=== PATIENT | male | born 1975 | race Caucasian/White ===

== ENCOUNTER 2019-06-30 11:11 | Inpatient (IN) | payer OTHER ==
[~2019-06-30] VITALS: Ht 182.9 cm; Wt 117.9 kg
[~2019-06-30 11:11] MED LIST: CELEXA; CEPH500 PO; DOCU100 PO; KLONOPIN; Keflex500 MG PO; OXYCODONE; Percocet 10-321 EACH PO
--- NOTE | 2019-06-30 17:59 | NUR ---
PT GAVE CONSENT FOR THIS DROP SHIPMENT CLERK TO HELP CARE FOR HIM TOMORROW 07/01/19
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
--- NOTE | 2019-07-01 07:36 | NUR ---
PT TO DAY SURGERY VIA [facility] AT [id number].
--- NOTE | 2019-07-01 07:47 | NUR ---
INTO SDS ADMISSION TO UNIT STARTED. VSS ANNESTHESIOLOGIST AT BEDSIDE. AT BEDSIDE.
--- NOTE | 2019-07-01 18:07 | NUR ---
SHIFT SUMMARY PT POD 0 LAP ADRIANO. LAP SITES X'S 4 C/D/I. DENIES N/V, TOLERATING REGULAR DIET. INDEPENDENTLY AMBULATING IN ROOM, WHEELCHAIR OUTSIDE TO SMOKE. MEDICATED FOR PAIN PER EMAR. PLAN IS TO DC HOME TOMORROW.
--- NOTE | 2019-07-02 04:59 | NUR ---
SHIFT SUMMARY: PT POD #1 FOR LAP ADRIANO. LAP SITES CDI. PT GELY REG DIET. AMBULATING HALLWAY INDEPENDENTLY. REPORTS PASSING FLATUS. DENIES N/V AND PAIN T/O SHIFT. PT DENIES NEED FOR PAIN MEDICATION. VOIDING WELL. SALINE LOCKED.
[2019-07-02 06:55] LABS: BASOPHILS ABSOLUTE AUTO 0.01 K/mm3 (0.00-0.23); BASOPHILS PERCENT AUTO 0 % (0-2); EOSINOPHILS PERCENT AUTO 0 % (0-6); Hemoglobin 13.1 g/dL (13.5-17.5); IMMATURE GRAN ABSOLUTE AUTO 0.05 K/mm3 (0.00-0.10); IMMATURE GRAN PERCENT AUTO 0 % (0-1); LYMPHOCYTES ABSOLUTE AUTO 0.94 K/mm3 (0.84-5.20); LYMPHOCYTES PERCENT AUTO 8 % (21-46); MONOCYTES ABSOLUTE AUTO 0.61 K/mm3 (0.16-1.47); MONOCYTES PERCENT AUTO 5 % (4-13); Mean Corpuscular HGB 25.3 pg (26.0-34.0); Mean Corpuscular HGB Conc 31.2 g/dL (31.5-36.5); Mean Platelet Volume 9.6 fL (9.1-12.4); NEUTROPHILS PERCENT AUTO 86 % (41-73); Platelet Count 254 K/mm3 (150-400); RDW Coefficient Variation 14.2 % (11.7-14.2); RDW Standard Deviation 41.5 fL (35.1-46.3); Red Blood Cell Count 5.17 M/mm3 (4.30-5.90); White Blood Cell Count 11.61 K/mm3 (4.00-11.30)
[2019-07-02 06:59] LABS: Mean Corpuscular Volume 81 fL (80-100)
[2019-07-02 07:11] LABS: Alanine Aminotransfer (ALT/SGP 36 U/L (12-78); Albumin/Globulin Ratio 0.6 (0.8-1.8); Alk Phos 68 U/L (50-136); Anion Gap 3 mmol/L (6-16); Aspartate Aminotrans (AST/SGOT 32 U/L (12-37); Bilirubin, Total 0.2 mg/dL (0.1-1.0); Blood Urea Nitrogen 16 mg/dL (8-24); Bun/Creatinine Ratio 19.9 (12.0-20.0); CO2, Blood 27 mmol/L (21-32); Calcium, Blood 8.8 mg/dL (8.5-10.1); Chloride, Blood 109 mmol/L (98-108); Creatinine, Blood 0.81 mg/dL (0.60-1.20); Globulin, Blood 4.7 g/dL (2.2-4.0); Glomerular Filtration Rate >60 (60-); Glucose, Blood 152 mg/dL (70-99); Potassium, Blood 4.5 mmol/L (3.5-5.5); Sodium, Blood 139 mmol/L (136-145); Total Protein, Blood 7.7 g/dL (6.4-8.2)
--- NOTE | 2019-07-02 07:15 | NUR ---
ASSUMED CARE: PT ALERT AND ORIENTED, INDEPENDENT. TALKING TO BANKRUPTCY PROCESSOR RN. NO ACUTE DISTRESS NOTED.
[2019-07-02] MEDS ORDERED: HYDR1TAB94 PO (08:19)
--- NOTE | 2019-07-02 09:08 | NUR ---
DISCHARGE INSTRUCTIONS DISCUSSED & GIVEN D/C INSTRUCTIONS. SCRIPT GIVEN. STATES UNDERSTANDING. WAITING ON FAMILY FOR RIDE HOME.
--- NOTE | 2019-07-02 09:38 | NUR ---
DISCHARGE PT DECLINES W/C. AMBULATES OUT WITHOUT DIFF.
--- NOTE | 2019-07-02 11:01 | NUR ---
07/02/19 1101 Gaby Andrews VERIFICATIONS, AUDITS. CONFIRMED OUT OF PACU WITH YAHAIRA Carranza RN.
== END 2019-07-02 09:30 | disposition home or self-care (01) | DRG 419 ==
LOC: ER 11:11 → SURS 11:12 → EDBEDREQTM 16:13 → EDBEDREQSVC 16:13 → EDBEDREQ 16:13 → SURS 16:30
PROVIDERS: ADMIT Surgery
PROC: 0FT44ZZ Resection of Gallbladder, Percutaneous Endoscopic Approach (ICD-10-PCS; principal; 2019-07-01 07:30)
DX: K80.01 Calculus of gallbladder with acute cholecystitis with obstruction (principal); F32.9 Major depressive disorder, single episode, unspecified; F17.210 Nicotine dependence, cigarettes, uncomplicated
CPT/HCPCS: 36415; 74176; 74300; 76705; 80053; 83690; 85025; 88304; 90686; 93005; 93010; 96361; 96372; 96374; 96375; 99284-25; A9270-GY; C1729; J0690; J1100; J1170; J1610; J1885; J2250; J2405; J2704; J3010; J7120

== ENCOUNTER 2021-01-04 16:22 | Emergency (ER) | payer OTHER ==
[~2021-01-04] VITALS: Ht 182.9 cm; Wt 108.9 kg
[~2021-01-04 16:22] MED LIST changes: +HYDR1TAB94 PO
[2021-01-04 17:47] LABS: Hematocrit 38.3 % (37.0-53.0); Hemoglobin 12.6 g/dL (13.5-17.5); Mean Corpuscular HGB 24.9 pg (26.0-34.0); Mean Corpuscular HGB Conc 32.9 g/dL (31.5-36.5); Mean Corpuscular Volume 76 fL (80-100); Platelet Count 345 K/mm3 (150-400); RDW Coefficient Variation 15.8 % (11.7-14.2); RDW Standard Deviation 42.8 fL (35.1-46.3); Red Blood Cell Count 5.07 M/mm3 (4.30-5.90); White Blood Cell Count 14.28 K/mm3 (4.00-11.30)
[2021-01-04 18:04] LABS: Albumin, Blood 2.4 g/dL (3.4-5.0); Albumin/Globulin Ratio 0.4 (0.8-1.8); Bilirubin, Total 1.1 mg/dL (0.1-1.0); Bun/Creatinine Ratio 34.6 (12.0-20.0); Calcium, Blood 9.9 mg/dL (8.5-10.1); Creatinine, Blood 2.34 mg/dL (0.60-1.20); Potassium, Blood 3.6 mmol/L (3.5-5.5); Total Protein, Blood 8.4 g/dL (6.4-8.2)
[2021-01-04 18:16] LABS: BAND PERCENT MAN 4 % (0-8); BASOPHILS PERCENT MAN 0 % (0-2); EOSINOPHILS PERCENT MAN 0 % (0-6); LYMPHOCYTES % ATYPICAL MANUAL 2 % (0-0); LYMPHOCYTES ABSOLUTE MAN 1.42 K/mm3 (0.84-5.20); LYMPHOCYTES PERCENT MAN 8 % (21-46); METAMYELOCYTE ABSOLUTE MAN 0.42 K/mm3 (0.00-0.00); METAMYELOCYTE PERCENT MAN 3 % (0-0); MONOCYTES ABSOLUTE MAN 0.42 K/mm3 (0.16-1.47); MONOCYTES PERCENT MAN 3 % (4-13); MYELOCYTE ABSOLUTE MAN 0.14 K/mm3 (0.00-0.00); MYELOCYTE PERCENT MAN 1 % (0-0); NEUTROPHILS ABSOLUTE MAN 11.85 K/mm3 (1.96-9.15); SEG NEUTROPHILS PERCENT MAN 79 % (41-73); TOTAL CELLS COUNTED 100
== END 2021-01-04 21:30 | disposition left against medical advice (07) ==
LOC: ER 16:22
PROVIDERS: Physician Assistant
DX: R10.9 Unspecified abdominal pain (principal); N17.9 Acute kidney failure, unspecified; Z53.20 Procedure and treatment not carried out because of patient's decision for unspecified reasons
CPT/HCPCS: 74176; 80053; 85025; 99284-25

== ENCOUNTER → 2025-04-15 | Outpatient (CLI) | payer OTHER ==
[~2025-04-15] MED LIST changes: +BUPRENORPHINE HC8 MG SL; +COLACE100 MG PO; +MIRALAX17 GM PO; +NARCAN4 M1 NS; +PROM25 PO
== END ==
LOC: LAB SHORT 18:49 → LAB 18:49
DX: L03.119 Cellulitis of unspecified part of limb (principal)
CPT/HCPCS: 87070; 87075; 87205